=== PATIENT | female | born 1940 | race Caucasian/White ===

== ENCOUNTER 2018-07-07 11:04 | Outpatient (RCR) | payer MEDICARE, BC ==
[2018-05-08 14:41] LABS: INR 1.3 (0.8-1.4); PROTHROMBIN TIME PATIENT 15.9 SEC (12.2-14.7)
[2018-05-20 14:30] LABS: PROTHROMBIN TIME PATIENT 21.5 SEC (12.2-14.7)
[2018-05-20 14:31] LABS: INR 1.9 (0.8-1.4)
[2018-06-12 13:37] LABS: INR 1.4 (0.8-1.4)
[2018-06-19 13:52] LABS: INR 1.2 (0.8-1.4); PROTHROMBIN TIME PATIENT 16.1 SEC (12.2-14.7)
[2018-06-29 14:41] LABS: PROTHROMBIN TIME PATIENT 22.3 SEC (12.2-14.7)
[2018-06-29 14:42] LABS: INR 1.9 (0.8-1.4)
[2018-07-07 11:37] LABS: INR 2.9 (0.8-1.4); PROTHROMBIN TIME PATIENT 31.9 SEC (12.2-14.7)
[2018-07-29 12:18] LABS: INR 1.7 (0.8-1.4); PROTHROMBIN TIME PATIENT 20.8 SEC (12.2-14.7)
== END 2018-08-06 | disposition home or self-care (01) ==
LOC: LAB FS 11:04
PROVIDERS: ATTEND Pediatrics
DX: I25.41 Coronary artery aneurysm (principal); I21.9 Acute myocardial infarction, unspecified
CPT/HCPCS: 36415; 85610

== ENCOUNTER → 2018-09-16 | Outpatient (CLI) | payer MEDICARE, BC ==
[2018-09-16 16:10] LABS: ALBUMIN 3.9 GM/DL (3.2-4.5); BILIRUBIN,TOTAL 0.3 MG/DL (0.1-1.0); CALCIUM 9.1 MG/DL (8.5-10.1); CREATININE SERUM 1.38 MG/DL (0.60-1.30); TOTAL PROTEIN 6.6 GM/DL (6.4-8.2)
[2018-09-17 15:53] LABS: CHOLESTEROL 129 MG/DL (< 200); HDL CHOLESTEROL 64 MG/DL (40-60); TRIGLYCERIDES 78 MG/DL (<150); VLDL CHOLESTEROL 16 MG/DL (5-40)
== END ==
LOC: LAB FS 15:03
PROVIDERS: ATTEND Pediatrics
DX: I25.10 Atherosclerotic heart disease of native coronary artery without angina pectoris (principal)
CPT/HCPCS: 36415; 80053; 80061

== ENCOUNTER 2018-11-06 10:04 | Outpatient (RCR) | payer MEDICARE, BC ==
[2018-08-13 14:25] LABS: PROTHROMBIN TIME PATIENT 21.5 SEC (12.2-14.7)
[2018-08-13 14:26] LABS: INR 1.8 (0.8-1.4)
[2018-11-06 11:35] LABS: INR 1.4 (0.8-1.4); PROTHROMBIN TIME PATIENT 18.2 SEC (12.2-14.7)
== END 2018-11-11 | disposition home or self-care (01) ==
LOC: LAB FS 10:04
PROVIDERS: ATTEND Pediatrics
DX: I25.41 Coronary artery aneurysm (principal); I21.9 Acute myocardial infarction, unspecified
CPT/HCPCS: 36415; 85610

== ENCOUNTER 2018-12-16 10:43 | Outpatient (RCR) | payer MEDICARE, BC ==
[2018-11-25 15:23] LABS: INR 2.4 (0.8-1.4); PROTHROMBIN TIME PATIENT 27.4 SEC (12.2-14.7)
[2018-12-16 11:16] LABS: INR 2.2 (0.8-1.4); PROTHROMBIN TIME PATIENT 25.1 SEC (12.2-14.7)
== END 2019-02-23 | disposition home or self-care (01) ==
LOC: LAB FS 10:43
PROVIDERS: ATTEND Pediatrics
DX: I25.41 Coronary artery aneurysm (principal); I21.9 Acute myocardial infarction, unspecified
CPT/HCPCS: 36415; 85610